=== PATIENT | female | born 1950 | race Caucasian/White ===

== ENCOUNTER 2020-01-31 13:14 | Inpatient (IN) | payer MEDICARE, OTHER ==
[~2020-01-31] VITALS: Ht 165.1 cm; Wt 65.1 kg
--- NOTE | 2020-01-31 13:28 | NUR ---
PT SENT BY [facility], S/P ANAPHYLACTIC REACTION TO ANTIBIOTICS. NO RESPIRATORY DISTRESSS. PT CONNECTED TO MONITORING. CALL LIGHT IN REACH. MD AT BEDSIDE.
[2020-01-31] MEDS ORDERED: CITRACAL (13:38)
[2020-01-31] MEDS ORDERED: ALPR0.5T7 PO (13:38)
[2020-01-31] MEDS ORDERED: ZETIA PO (13:38)
[2020-01-31] MEDS ORDERED: ROSU40TA PO (13:38)
[2020-01-31] MEDS ORDERED: ASPI81TA45 PO (13:38)
[2020-01-31] MEDS ORDERED: FLUO40CA2 PO (13:38)
[2020-01-31] MEDS ORDERED: NAPR-685 PO (13:38)
[2020-01-31] MEDS ORDERED: EPINEPHRINE 1 MG/ML, 1ML IM PRN (14:00)
[2020-01-31] MEDS ORDERED: FAMOTIDINE 20 MG/2 ML IVPush ONE (14:00)
[2020-01-31] MEDS ORDERED: FAMOTIDINE 20 MG/2 ML ONE (14:19)
--- NOTE | 2020-01-31 14:25 | NUR ---
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 PT RESTING COMFORTABLY ON GURNEY. NADN. WARM BLANKET PROVIDED.
[2020-01-31] MEDS ORDERED: ONDANSETRON ODT 4 MG PO PRN (15:00)
[2020-01-31] MEDS ORDERED: ACETAMINOPHEN 325 MG TABLET PO PRN (15:00)
[2020-01-31] MEDS ORDERED: ENOXAPARIN 40 MG/0.4 ML SQ SCH (15:00)
[2020-01-31] MEDS ORDERED: LABETALOL 5MG/ML, 20ML IVPush PRN (15:00)
--- NOTE | 2020-01-31 15:37 | NUR ---
PT TO BE ADMITTED TO ICU. HOSPITALIST AT BEDSIDE FOR ASSESSMENT.
--- NOTE | 2020-01-31 15:56 | NUR ---
REPORT GIVEN TO DAVID ROMERO.
[2020-01-31 16:23] VITALS: BP 134/72
[2020-01-31] MEDS: methylPREDNISolone SOD SUCC 40 MG/ML IVPush SCH ×2 (17:09→19:57)
[2020-01-31 20:11] VITALS: BP 111/73
[2020-01-31] MEDS ORDERED: FAMOTIDINE 20 MG/2 ML IVPush SCH (21:00)
[2020-01-31] MEDS ORDERED: ATORVASTATIN 80 MG TABLET PO SCH (21:00)
[2020-02-01] MEDS ORDERED: CALC-123 PO (01:20)
[2020-02-01] MEDS: methylPREDNISolone SOD SUCC 40 MG/ML IVPush SCH ×2 (01:59→08:34)
[2020-02-01 04:00] VITALS: BP 139/62
[2020-02-01 04:44] LABS: ALBUMIN 3.4 g/dL (3.4-5.0); ANION GAP 8 mmol/L (5-15); CALCIUM 8.9 mg/dL (8.5-10.1); CHLORIDE 104 mmol/L (98-107)
[2020-02-01 04:45] LABS: BASOPHILS % (AUTO) 0 % (0-1); EOSINOPHILS # (AUTO) 0.06 x10^3/uL (0-0.4); EOSINOPHILS % (AUTO) 1 % (1-7); LYMPHOCYTES # (AUTO) 1.26 x10^3/uL (1-3.4); LYMPHOCYTES % (AUTO) 11 % (22-44); MD NO; MEAN CORPUSCULAR HEMOGLOBIN 30.2 pg (27.0-34.8); MEAN CORPUSCULAR HGB CONC 32.8 g/dL (32.4-35.8); MEAN CORPUSCULAR VOLUME 92.3 fL (80-100); MEAN PLATELET VOLUME 7.7 fL (7.4-10.4); MONOCYTES # (AUTO) 0.79 x10^3/uL (0.2-0.8); MONOCYTES % (AUTO) 7 % (2-9); NEUTROPHILS # (AUTO) 9.77 x10^3/uL (1.8-6.8); NEUTROPHILS % (AUTO) 82 % (42-75); PLATELET COUNT 292 x10^3/uL (130-400); RED BLOOD COUNT 4.38 x10^6/uL (3.82-5.3); RED CELL DISTRIBUTION WIDTH 14.3 % (9.6-15.2)
[2020-02-01 04:47] LABS: ALANINE AMINOTRANSFERASE 21 U/L (12-78); ALKALINE PHOSPHATASE 39 U/L (45-117); BILIRUBIN,TOTAL 0.8 mg/dL (0.2-1.0); CREATININE 0.58 mg/dL (0.55-1.02); TOTAL PROTEIN 6.2 g/dL (6.4-8.2)
[2020-02-01] MEDS ORDERED: NAPROXEN 500 MG TABLET PO SCH (09:00)
[2020-02-01] MEDS ORDERED: FAMOTIDINE 20 MG TABLET PO SCH (09:00)
[2020-02-01] MEDS ORDERED: EZETIMIBE 10 MG TABLET PO SCH (09:00)
[2020-02-01] MEDS ORDERED: ASPIRIN 81 MG TABLET EC PO SCH (09:00)
[2020-02-01] MEDS ORDERED: FLUOXETINE HCL 20 MG CAPSULE PO SCH (09:00)
== END 2020-02-01 09:46 | disposition home or self-care (01) | DRG 915 ==
LOC: ED 15:03 → EDIP 15:25 → CCU 16:06 → DCLOUNGE 02-01 09:37
PROVIDERS: ADMIT Internal Medicine; ATTEND Internal Medicine
DX: T88.6XXA Anaphylactic reaction due to adverse effect of correct drug or medicament properly administered, initial encounter (principal); J96.90 Respiratory failure, unspecified, unspecified whether with hypoxia or hypercapnia; E87.1 Hypo-osmolality and hyponatremia; T78.3XXA Angioneurotic edema, initial encounter; T36.1X5A Adverse effect of cephalosporins and other beta-lactam antibiotics, initial encounter; E87.6 Hypokalemia; D72.828 Other elevated white blood cell count; E78.5 Hyperlipidemia, unspecified; F32.9 Major depressive disorder, single episode, unspecified; F41.9 Anxiety disorder, unspecified; I25.119 Atherosclerotic heart disease of native coronary artery with unspecified angina pectoris; M19.90 Unspecified osteoarthritis, unspecified site; Z88.0 Allergy status to penicillin; Z88.8 Allergy status to other drugs, medicaments and biological substances; Z91.048 Other nonmedicinal substance allergy status; F17.200 Nicotine dependence, unspecified, uncomplicated; Z82.49 Family history of ischemic heart disease and other diseases of the circulatory system; Z88.1 Allergy status to other antibiotic agents; Z90.710 Acquired absence of both cervix and uterus; Z95.5 Presence of coronary angioplasty implant and graft; Y92.89 Other specified places as the place of occurrence of the external cause
CPT/HCPCS: 36415; 80053; 85025; 87081; 99285; G0378; J1650; J2920; J3490